=== PATIENT | male | born 1960 | race Caucasian/White ===

== ENCOUNTER 2023-08-07 14:48 | Emergency (ER) | payer OTHER, SELFPAY ==
[2023-08-07 15:13] VITALS: BP 154/87; PULSE 76; RESP 18; TEMP 36.6; O2SAT 97; BMI 30.7
--- NOTE | 2023-08-07 15:27 | DI.MRI.S_ITS ---
PROCEDURE: MR HUMERUS RT WO CON INDICATIONS: ?biceps tendon rupture TECHNIQUE: Noncontrast coronal and sagittal T1 spin echo and STIR; axial T1 spin echo and T2 fast spin echo with fat saturation through the right humerus COMPARISON: [facility], CR, XR SHOULDER RT MIN 2V, 08/07/2023, 16:03. [facility], CR, XR ELBOW RT MIN 3V, 08/07/2023, 16:03. [facility], CR, XR HUMERUS RT 2V, 08/07/2023, 16:03. FINDINGS: Image quality: Excellent. Bones: Humerus, clavicle, and scapula demonstrate normal signal intensity without acute fracture or trabecular bone injury. There is focal edema adjacent to the anterolateral aspect of a right lower rib (likely the 7th that could represent a fracture. Degenerative changes are seen at the acromioclavicular joint. There is mild degenerative spurring in the glenoid rim. Soft tissues: There is complete tearing of the proximal biceps long head tendon with distal tendon retraction and retraction of the myotendinous junction. Soft tissue edema and fluid are seen at the myotendinous junction. The biceps short head tendon is intact. Distal biceps tendon is not completely included in the field of view of this exam. The remaining soft tissue structures of the shoulder are not optimally evaluated on this exam although no large full-thickness rotator cuff tendon tear is identified. The visualized musculature is otherwise within normal limits in signal intensity and bulk. IMPRESSION: 1. Complete tearing of the proximal biceps long head tendon with distal retraction of the torn tendon and myotendinous junction. Biceps short head tendon remains intact. Distal biceps tendon is not well seen but the visualized portion is grossly intact. 2. Focal edema along the anterolateral aspect of a lower right rib (possibly the 7th rib) is suspicious for possible rib fracture, but is only included at the margins of the field of view of this exam. Approved by: Cristobal Mosqueda M.D. on 08/07/2023 at 19:35
--- NOTE | 2023-08-07 15:27 | ED.UPPEXIN ---
HPI - Extremity Injury (Upper) <Emmett Metz PA-C - Last Filed: 08/07/23 19:30> General Chief Complaint: Extremity Injury, Upper Stated Complaint: Rt arm pain Time Seen by Provider: 08/07/23 15:23 Source: patient Mode of arrival: Ambulatory History of Present Illness HPI narrative: 63-year-old male presents to the ED for a right biceps injury that was sustained 5 days prior to arrival. Patient states that he was picking up a box of canned goods at work when he felt his right bicep muscle spasm and twist. Patient states that his right bicep looks noted up and bruised. The bruising started this morning. There is full range of motion, patient states that he experiences pain only when he twists his arm back as in abduction and extension. No numbness, tingling, weakness. No other injuries. Related Data Allergies Allergy/AdvReac Type Severity Reaction Status Date / Time No Known Drug Allergies Allergy Verified 08/07/23 15:13 Review of Systems <Emmett Metz PA-C - Last Filed: 08/07/23 19:30> Constitutional Constitutional: Denies chills, Denies fatigue, Denies fever(s), Denies frequent falls, Denies lethargy and Denies weakness Eyes Eyes: Denies change in vision, Denies eye discharge, Denies irritation and Denies loss of vision ENT Ears, Nose, Mouth, and Throat: Denies change in voice, Denies dizziness, Denies neck pain, Denies sore throat and Denies throat swelling Cardiovascular Cardiovascular: Denies chest pain, Denies irregular heart rhythm, Denies lightheadedness, Denies palpitations, Denies dyspnea, Denies dyspnea on exertion and Denies orthopnea Respiratory Respiratory: Denies cough, Denies dyspnea, Denies dyspnea on exertion and Denies wheezing Gastrointestinal Gastrointestinal: Denies abdominal pain, Denies change in bowel habits, Denies diarrhea, Denies nausea and Denies vomiting Musculoskeletal Musculoskeletal: Denies neck pain and Denies numbness Comments: Right biceps injury, bruising Integumentary/Breasts Skin/Breast: Denies pruritus, Denies erythema, Denies rash and Denies wounds Neurologic Neurologic: Denies behavioral changes, Denies confusion, Denies dizziness, Denies frequent falls, Denies loss of vision, Denies numbness and Denies weakness Psychiatric Psychiatric: Denies anxiety, Denies behavioral changes, Denies confusion, Denies depression, Denies homicidal ideation and Denies suicidal ideation Endocrine Endocrine: Denies fatigue, Denies flushing and Denies palpitations Hematologic/Lymphatic Hematologic/Lymphatic: Denies easy bruising Allergic/Immunologic Allergic/Immunologic: Denies urticaria, Denies throat swelling and Denies wheezing Patient History <Emmett Metz PA-C - Last Filed: 08/07/23 19:30> Social History Smoking Status: Current every day smoker Smoking Status: Current every day smoker tobacco type: cigarettes Substance Use Type: does not use Exam <HARIKA Urban Last Filed: 08/07/23 19:30> Narrative Exam Narrative: Const General:?cooperative, healthy appearing and comfortable HENWI Head:?normal to inspection Ears:?hearing grossly normal bilaterally Nose:?external nose normal Face and sinus:?normal facial exam and sinuses nontender Mouth:?oral mucosae normal Throat:?posterior oropharynx normal Eyes General:?appearance normal, both eyes and all related structures Neck Neck:?normal visual inspection and no lymphadenopathy noted Resp Effort & Inspection:?normal respiratory effort Auscultation:?clear to auscultation bilaterally Cardio Rate:?regular rate Rhythm:?regular rhythm Musculoskeletal Right biceps appears with the Gus sign, indicative of distal biceps tendon injury. There is ecchymosis overlying the biceps muscle. Strength and sensation is intact. There is full range of motion. Patient is neurovascularly intact. Neuro General:?patient alert, patient awake and patient oriented x3 Initial Vital Signs Initial Vital Signs: Vital Signs Temperature 98 F 08/07/23 15:13 Pulse Rate 76 08/07/23 15:13 Respiratory Rate 18 08/07/23 15:13 Blood Pressure 154/87 H 08/07/23 15:13 Pulse Oximetry 97 08/07/23 15:13 Oxygen Delivery Method Room Air 08/07/23 15:13 <Victorino Murphy DO - Last Filed: 08/08/23 01:10> Initial Vital Signs Initial Vital Signs: Vital Signs Temperature 98 F 08/07/23 15:13 Pulse Rate 76 08/07/23 15:13 Respiratory Rate 18 08/07/23 15:13 Blood Pressure 154/87 H 08/07/23 15:13 Pulse Oximetry 97 08/07/23 15:13 Oxygen Delivery Method Room Air 08/07/23 15:13 Course <Emmett Metz PA-C - Last Filed: 08/07/23 19:30> Orders Ordered: ED Orders 08/07/23 15:27 MR humerus RT wo con Stat 08/07/23 16:01 XR elbow RT min 3V Stat XR humerus RT 2V Stat XR shoulder RT min 2V Stat Vital Signs Vital signs: Vital Signs - 8 hr 08/07/23 19:53 Pulse Rate 70 Respiratory Rate 18 Blood Pressure 162/105 H Pulse Oximetry 95 Oxygen Delivery Method Room Air <Victorino Murphy DO - Last Filed: 08/08/23 01:10> Orders Ordered: ED Orders 08/07/23 15:27 MR humerus RT wo con Stat 08/07/23 16:01 XR elbow RT min 3V Stat XR humerus RT 2V Stat XR shoulder RT min 2V Stat Vital Signs Vital signs: Vital Signs - 8 hr 08/07/23 19:53 Pulse Rate 70 Respiratory Rate 18 Blood Pressure 162/105 H Pulse Oximetry 95 Oxygen Delivery Method Room Air MDM - Extremity Injury (Upper) <Emmett Metz PA-C - Last Filed: 08/07/23 19:30> [facility] Narrative Medical decision making narrative: 63-year-old male presents to the ED for a right biceps injury that was sustained 5 days prior to arrival. Patient is on presents like a distal biceps tendon rupture. Will obtain x-rays to rule out avulsion fractures. Will obtain MR. Will reassess. X-rays without acute findings. Still awaiting MR results. Patient has been signed out to Dr. Murphy at this time. <Victorino Murphy DO - Last Filed: 08/08/23 01:10> [facility] Narrative Medical decision making narrative: 63-year-old male presents to the ED for a right biceps injury that was sustained 5 days prior to arrival. Patient is on presents like a distal biceps tendon rupture. Will obtain x-rays to rule out avulsion fractures. Will obtain MR. Will reassess. X-rays without acute findings. Still awaiting MR results. Patient has been signed out to Dr. Mruphy at this time. Dr murphy: Received turned over. Review patient's history and physical exam. MRI does show a biceps tear. This is consistent with his clinical presentation. Will discharge patient home with a copy of his imaging studies. He is here locally working and will be traveling home. I did recommend that he make contact with an orthopedic provider when he returns home as he was going to need further evaluation within the next couple days/week. His pain is relatively well controlled. He was given return precautions. He expressed understanding and agreement. Discharge Plan Departure Patient Disposition: Home Clinical Impression: Tear of right biceps muscle Instructions: How To Perform RICE (Rest, Ice, Compress, Elevate) Activity Restrictions/Additional Instructions: You are going to need follow-up with orthopedic surgery. You can take Tylenol or ibuprofen for any discomfort. Your activity is only limited by the discomfort you were having. Return to the emergency department for new symptoms. Referrals: Miscellaneous,Doctor, [Primary Care Provider] - Stand Alone Forms: Patient Portal/API
--- NOTE | 2023-08-07 16:01 | DI.RAD.S_ITS ---
PROCEDURE: XR HUMERUS RT 2V INDICATIONS: ?biceps tendon rupture TECHNIQUE: 2 views of the humerus were acquired. COMPARISON: None. FINDINGS: Bones: No fractures or dislocations. Moderate acromioclavicular joint osteoarthritic changes are seen. No suspicious bony lesions. Soft tissues: No suspicious soft tissue calcifications. IMPRESSION: No acute right humeral fracture or dislocation. Moderate acromioclavicular joint osteoarthritis. Dictated by: Ernesto Ayers M.D. on 08/07/2023 at 16:54 Approved by: Ernesto Ayers M.D. on 08/07/2023 at 16:55
--- NOTE | 2023-08-07 16:01 | DI.RAD.S_ITS ---
PROCEDURE: XR SHOULDER RT MIN 2V INDICATIONS: ?biceps tendon rupture TECHNIQUE: 3 views of the shoulder were acquired. COMPARISON: None. FINDINGS: Bones: No fractures or dislocations. Moderate acromioclavicular joint osteoarthritic changes are seen. No suspicious bony lesions. Visualized ribs appear intact. Soft tissues: No suspicious soft tissue calcifications. IMPRESSION: No acute shoulder fracture or dislocation. Moderate acromioclavicular joint osteoarthritis. Dictated by: Ernesto Ayers M.D. on 08/07/2023 at 16:55 Approved by: Ernesto Ayers M.D. on 08/07/2023 at 16:55
--- NOTE | 2023-08-07 16:01 | DI.RAD.S_ITS ---
PROCEDURE: XR ELBOW RT MIN 3V INDICATIONS: ?biceps tendon rupture TECHNIQUE: 3 views of the elbow were acquired. COMPARISON: None. FINDINGS: Bones: No fractures or dislocations. No suspicious bony lesions. Soft tissues: No elbow joint effusion. No suspicious soft tissue calcifications. IMPRESSION: No acute bony abnormality or significant joint effusion. Dictated by: Ernesto Ayers M.D. on 08/07/2023 at 16:54 Approved by: Ernesto Ayers M.D. on 08/07/2023 at 16:54
[2023-08-07 19:53] VITALS: BP 162/105; PULSE 70; RESP 18; O2SAT 95
== END 2023-08-07 20:10 | disposition home or self-care (01) ==
PROVIDERS: Emergency Provider Emergency Medicine
DX: S46.211A Strain of muscle, fascia and tendon of other parts of biceps, right arm, initial encounter (principal); M62.838 Other muscle spasm; X58.XXXA Exposure to other specified factors, initial encounter
CPT/HCPCS: 73030; 73060; 73080; 73218; 99284